=== PATIENT | male | born 1985 | race Caucasian/White ===

== ENCOUNTER 2019-09-14 21:55 | Emergency (ER) | payer OTHER ==
[~2019-09-14] VITALS: Ht 170.2 cm; Wt 68.1 kg
[2019-09-14 21:56] VITALS: BP 142/96
== END 2019-09-14 22:21 ==
LOC: ER 21:55
DX: F10.129 Alcohol abuse with intoxication, unspecified (principal); F12.90 Cannabis use, unspecified, uncomplicated; Y90.9 Presence of alcohol in blood, level not specified
CPT/HCPCS: 99283

== ENCOUNTER 2022-03-10 23:27 | Emergency (ER) | payer SELFPAY ==
[~2022-03-10] VITALS: Ht 167.6 cm; Wt 72.3 kg
[2022-03-11 00:31] VITALS: BP 155/90
== END 2022-03-11 00:33 ==
LOC: ER 23:27
DX: V89.2XXA Person injured in unspecified motor-vehicle accident, traffic, initial encounter; Y93.89 Activity, other specified; Y92.89 Other specified places as the place of occurrence of the external cause; Y99.8 Other external cause status
CPT/HCPCS: 99283